=== PATIENT | female | born 1960 | race Caucasian/White ===

== ENCOUNTER 2021-10-19 13:59 | Emergency (ER) | payer SELFPAY ==
[2021-10-19 14:09] VITALS: BP 134/91; PULSE 115; RESP 16; TEMP 36.7; O2SAT 100; BMI 39.3
--- NOTE | 2021-10-19 14:24 | W.ED.DENTAL ---
HPI - Dental/Oral General: Chief complaint: Dental/Oral Stated complaint: TOOTHACHE Time Seen by Provider: 10/19/21 14:15 History of Present Illness: HPI Narrative: Patient has an appointment on Saturday in [place] to have tooth most likely pulled. Patient was told she needed antibiotics prior to having tooth pulled. Patient here for antibiotics. MD Complaint: tooth pain Onset (ago): week(s) Duration: intermittent Severity: mild Context: history of dental caries Associated symptoms: Reports no associated symptoms; Denies fever(s) Review of Systems Const: Denies: fever(s) or chills ENMT: Reports: dental pain Psych: Denies: anxiety Physical Exam Const: COMMON NORMALS: no acute distress GENERAL APPEARANCE: cooperative HENMT: TEETH & GINGIVA IMAGES: 1. Most tooth eight awake cavity 2. Has small cavity in the anterior aspect no swelling to the gum. THROAT: posterior oropharynx normal Resp: COMMON NORMALS: normal respiratory effort Psych: COMMON NORMALS: mental status grossly normal Course Vital Signs: Vital signs: Vital Signs Temperature 98.1 F 10/19/21 14:09 Pulse Rate 115 H 10/19/21 14:09 Respiratory Rate 16 10/19/21 14:09 Blood Pressure 134/91 10/19/21 14:09 Pulse Oximetry 100 10/19/21 14:09 Discharge Plan Discharge Patient Disposition: Home Clinical Impression: Dental caries Condition: Stable Prescriptions: New clindamycin HCl 300 mg capsule 300 mg PO Q8H 7 Days Qty: 21 RF: 0 Discharge Orders: Discharge ED (Routine); Ordered 10/19/21 Ordered By: Manjit Leung Discharge Diet: Usual diet Discharge Activity: Resume usual activity Patient Instructions: Dental Caries (Cavities) Activity Restrictions/Additional Instructions: Follow-up with dentist as scheduled. Take your medication as prescribed. Coding Level of Care Code ED Industrial Chemistry Teacher for Tejal Tovar
== END 2021-10-19 15:08 | disposition home or self-care (01) ==
PROVIDERS: Emergency Provider Nurse Practitioner Family
DX: K02.9 Dental caries, unspecified (principal)
CPT/HCPCS: 99282

== ENCOUNTER 2023-07-26 16:32 | Emergency (ER) | payer MEDICAID, SELFPAY ==
--- NOTE | 2023-07-26 16:38 | ECG_ITS ---
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 Measurements Intervals [place] Rate: 107 P: 0 CO: 0 QRS: 70 QRSD: 98 T: 8 QT: 327 QTc: 437 Interpretive Statements ATRIAL FIBRILLATION WITH RAPID VENTRICULAR RESPONSE NONSPECIFIC T-WAVE ABNORMALITY Compared to ECG 07/25/2017 16:42:21 No significant changes Electronically Signed On 07-26-2023 23:08:09 CDT by Glenroy Aguilar M.D. [email or web address]
[2023-07-26 16:40] VITALS: BP 129/90; PULSE 101; RESP 18; TEMP 36.7; O2SAT 97; BMI 40.3
--- NOTE | 2023-07-26 18:41 | XRR_ITS ---
PROCEDURE INFORMATION: Exam: XR Chest Exam date and time: 07/26/2023 7:02 PM Age: 63 years old Clinical indication: Pain; Other: Unknown; Additional info: Palpitations TECHNIQUE: Imaging protocol: Radiologic exam of the chest. Views: 1 view. COMPARISON: CR XR chest 1V [id number] 07/25/2017 10:39 AM FINDINGS: Lungs: Unremarkable. No consolidation. Pleural spaces: Unremarkable. No pleural effusion. No pneumothorax. Heart/Mediastinum: Unremarkable. No cardiomegaly. Bones/joints: Unremarkable. XR/XR chest 1V portable [id number] IMPRESSION: No acute findings.
[2023-07-26 18:42] VITALS: BP 149/96; PULSE 104; RESP 14; O2SAT 97
[2023-07-26] MEDS: sodium chloride 0.9% 500 ML IV (18:48)
[2023-07-26 19:03] LABS: Basophils # 0.1 10^3/uL (0.0-0.1); Basophils % 1.1 %; Eosinophils # 0.3 10^3/uL (0.0-0.8); Eosinophils % 4.3 %; Hematocrit 43.6 % (36-47); Lymphocytes # 2.5 10^3/uL (0.8-4.8); Lymphocytes % 39.5 %; Mean Corpuscular HGB Conc 32.1 g/dL (30-55); Mean Corpuscular Hemoglobin 29.2 pg (27-33); Mean Corpuscular Volume 90.8 fl (85-98); Mean Platelet Volume 10.6 fL (7.4-10.4); Monocytes # 0.6 10^3/uL (0.2-0.9); Neutrophils # 2.87 10^3/uL (1.8-7.7); Neutrophils % 45.9 %; Nucleated Red Blood Cells % 0 %; Platelet Count 241 10^3/cmm (157-399); Red Cell Distribution Width 13.2 % (12.1-15.1); White Blood Count 6.25 10^3/uL (3.29-11.43)
[2023-07-26 19:04] LABS: INR 0.99 (0.8-1.2)
[2023-07-26 19:05] LABS: Partial Thromboplastin Time 26.6 SECONDS (23.9-36.7)
[2023-07-26 19:14] LABS: Troponin(5th) Baseline 10 ng/L (0-10)
[2023-07-26 19:21] LABS: Alanine Aminotransferase 14 U/L (0-33); Albumin Level 4.1 g/dL (3.5-5.2); Alkaline Phosphatase 88 U/L (35-105); Anion Gap 14.2 (5-19); Aspartate Amino Transferase 18 U/L (0-32); Blood Urea Nitrogen 18 mg/dL (8-23); Calcium 9.4 mg/dL (8.5-10.5); Carbon Dioxide 25 mmol/L (22-29); Chloride 105 mmol/L (98-107); Globulin 2.7 g/dL (1.3-4.6); Glomerular Filtration Rate 101.6 mL/min (90-130); Glucose 101 mg/dL (65-115); Magnesium 2.3 mg/dL (1.7-2.3); NT Pro B Type Natriuretic Pept 1476 pg/mL (0-125); Osmolality Calculated 292 mOsm/kg (285-295); Phosphorus 3.7 mg/dL (2.5-4.5); Potassium 4.2 mmol/L (3.5-5.1); Sodium 140 mmol/L (136-145); Thyroid Stimulating Hormone 1.31 uIU/mL (0.27-4.20); Total Bilirubin 0.4 mg/dL (0.15-1.2); Total Protein 6.8 g/dL (6.6-8.7)
[2023-07-26 19:22] VITALS: BP 145/98; PULSE 104; O2SAT 96
--- NOTE | 2023-07-26 19:40 | ED_ITS ---
HPI - Arrhythmia/Palpitations General: Chief Complaint: Arrhythmia/Palpitations Stated Complaint: a-fib at walk in clinic Time Seen by Provider: 07/26/23 17:53 History of Present Illness: 63-year-old female with a known history of chronic atrial fibrillation presented into the outpatient clinic concerning for dentalgia and dental infection she reports she was diagnosed in 2017 she does not admit that she has been noncompliant with her medications since that time she reports she originally was admitted to our hospital had a comprehensive cardiac work-up in which due to lack of insurance she neglected to do any further follow-up. The patient reports has not been on any heart medications over the last 5 years she does not endorse having any chest pain or pressure with her intermittent palpitations the patient was sent in from an outside clinic for further evaluation of her atrial fibrillation. Associated symptoms: Deny anxiety, nausea or vomiting Review of Systems General: Reports: 10 or more systems reviewed and unremarkable except in HPI and below Const: Denies: fever(s), chills, fatigue or malaise Eyes: Denies: change in vision or blurry vision ENMT: Reports: dental pain; Denies: mouth pain Card: Reports: palpitations; Denies: chest pain Resp: Denies: dyspnea or productive cough GI: Denies: abdominal pain, nausea or vomiting : Denies: flank pain Musc: Denies: extremity pain or extremity swelling Skin/Breast: Denies: rash or pruritus Neuro: Denies: headache(s) Psych: Denies: anxiety or depression Senthil/Lymph: Denies: easy bleeding All/Imm: Denies: urticaria, throat swelling or facial swelling Physical Exam 2 Const: COMMON NORMALS: no acute distress, patient oriented x3 and healthy appearing HENMT: COMMON NORMALS: normocephalic and atraumatic HEAD & SCALP: normocephalic and atraumatic Eye: COMMON NORMALS: Equal, round and reactive pupils present and EOMs intact bilaterally PUPIL: Yes Equal, round and reactive pupils present Neck/C-Spine: COMMON NORMALS: full ROM, supple and no JVD Lymph: LYMPHATIC: no lymphadenopathy noted Chest: COMMONS NORMALS: normal inspection of the chest and normal palpation of entire chest wall Resp: COMMON NORMALS: normal respiratory effort, No retractions and clear to auscultation bilaterally EFFORT & INSPECTION: Yes able to speak in complete sentences and Yes symmetric chest movement AUSCULTATION: clear to auscultation bilaterally Cardio: COMMON NORMALS: no JVD and regular rate; negative for regular rhythm (Patient is known to be in atrial fibrillation with heart rate of 107) RATE: regular rate RHYTHM: abnormal rhythm (Patient is known to be in atrial fibrillation with heart rate of 107) GI: COMMON NORMALS: Normal to inspection, nondistended, normoactive bowel sounds present, Soft to palpation and non-tender INSPECTION: Yes normal to inspection PALPATION: Yes Soft to palpation : COMMON NORMALS: Yes no CVA tenderness BLADDER/KIDNEY EXAM: Yes no CVA tenderness Back/Pelvis: COMMON NORMALS: no CVA tenderness Extremity: COMMON NORMALS: normal to inspection and full ROM Neuro: COMMON NORMALS: patient oriented x3, CN's II-XII intact bilaterally, moves all extremities and no focal motor deficits Psych: COMMON NORMALS: mental status grossly normal, Normal thought process present, cooperative and normal affect THOUGHT PROCESS: Normal thought process present Skin: COMMON NORMALS: no rashes or lesions noted GENERAL SKIN EXAM: no rashes or lesions noted Course Vital Signs: Vital signs: Vital Signs Temperature 98.1 F 07/26/23 16:40 Pulse Rate 90 07/26/23 20:31 Respiratory Rate 16 07/26/23 20:31 Blood Pressure 132/104 07/26/23 20:31 Pulse Oximetry 96 07/26/23 20:31 Oxygen Delivery Me thod Room Air 07/26/23 16:40 MDM - Arrhythmia/Palpitations Medical Decision Making Due to lack of additional cardiac follow basic cardiac work-up will be obtained the patient patient will be started on some metoprolol while in the ER anticipate discharge home on Eliquis as well as metoprolol advised patient will need to promptly follow-up outpatient with her primary care doctor for further eval of her heart we will continue to follow. Patient's BNP was slightly elevated no pleural effusions or concerns for fluid overload patient was provided a dose of metoprolol which her ventricular rate got down to approximately average ventricular rate of 85, A limited prescription of Eliquis as well as Lopressor will be initiated which patient is directed to further follow-up with primary care doctor for further evaluation and management. Lab Data 07/26/23 18:45 07/26/23 18:45 Radiology Impressions Chest X-Ray 07/26/23 18:41 IMPRESSION: No acute findings. Laboratory Results WBC 6.25 10^3/uL (3.29-11.43) 07/26/23 18:45 RBC 4.80 10^6/uL (3.85-5.65) 07/26/23 18:45 Hgb 14.00 g/dL (11.27-16.99) 07/26/23 18:45 Hct 43.6 % (36-47) 07/26/23 18:45 MCV 90.8 fl (85-98) 07/26/23 18:45 MCH 29.2 pg (27-33) 07/26/23 18:45 MCHC 32.1 g/dL (30-55) 07/26/23 18:45 RDW 13.2 % (12.1-15.1) 07/26/23 18:45 Plt Count 241 10^3/cmm (157-399) 07/26/23 18:45 MPV 10.6 fL (7.4-10.4) H 07/26/23 18:45 Neut % (Auto) 45.9 % 07/26/23 18:45 Lymph % (Auto) 39.5 % 07/26/23 18:45 Brooke % (Auto) 9.0 % 07/26/23 18:45 Eos % (Auto) 4.3 % 07/26/23 18:45 Baso % (Auto) 1.1 % 07/26/23 18:45 Neut # (Auto) 2.87 10^3/uL (1.8-7.7) 07/26/23 18:45 Lymph # (Auto) 2.5 10^3/uL (0.8-4.8) 07/26/23 18:45 Brooke # (Auto) 0.6 10^3/uL (0.2-0.9) 07/26/23 18:45 Eos # (Auto) 0.3 10^3/uL (0.0-0.8) 07/26/23 18:45 Baso # (Auto) 0.1 10^3/uL (0.0-0.1) 07/26/23 18:45 Nucleated RBC % (auto) 0 % 07/26/23 18:45 Nucleated RBCs # 0.0 /100WBC 07/26/23 18:45 PT 13.40 SECONDS (12.1-14.9) 07/26/23 18:45 INR 0.99 (0.8-1.2) 07/26/23 18:45 APTT 26.6 SECONDS (23.9-36.7) 07/26/23 18:45 Sodium 140 mmol/L (136-145) 07/26/23 18:45 Potassium 4.2 mmol/L (3.5-5.1) 07/26/23 18:45 Chloride 105 mmol/L (98-107) 07/26/23 18:45 Carbon Dioxide 25 mmol/L (22-29) 07/26/23 18:45 Anion Gap 14.2 (5-19) 07/26/23 18:45 BUN 18 mg/dL (8-23) 07/26/23 18:45 Creatinine 0.6 mg/dL (0.5-0.9) 07/26/23 18:45 GFR Calculation 101.6 mL/min (90-130) 07/26/23 18:45 Glucose 101 mg/dL (65-115) 07/26/23 18:45 Calculated Osmolality 292 mOsm/kg (285-295) 07/26/23 18:45 Calcium 9.4 mg/dL (8.5-10.5) 07/26/23 18:45 Phosphorus 3.7 mg/dL (2.5-4.5) 07/26/23 18:45 Magnesium 2.3 mg/dL (1.7-2.3) 07/26/23 18:45 Total Bilirubin 0.4 mg/dL (0.15-1.2) 07/26/23 18:45 AST 18 U/L (0-32) 07/26/23 18:45 ALT 14 U/L (0-33) 07/26/23 18:45 Alkaline Phosphatase 88 U/L (35-105) 07/26/23 18:45 Troponin T Baseline 10 ng/L (0-10) 07/26/23 18:45 Troponin T 120 Minute 9.97 ng/L (0-10) 07/26/23 20:35 Delta Troponin T -0.03 ABS# (0-10) L 07/26/23 20:35 C-Reactive Protein 3.0 mg/L (0.0-4.9) 07/26/23 18:45 NT-Pro-B Natriuret Pep 1476 pg/mL (0-125) H 07/26/23 18:45 Total Protein 6.8 g/dL (6.6-8.7) 07/26/23 18:45 Albumin 4.1 g/dL (3.5-5.2) 07/26/23 18:45 Globulin 2.7 g/dL (1.3-4.6) 07/26/23 18:45 TSH 1.31 uIU/mL (0.27-4.20) 07/26/23 18:45 Urine Color Colorless (Yellow) 07/26/23 20:13 Urine Appearance Clear (CLEAR) 07/26/23 20:13 Urine pH 7 (5-7) 07/26/23 20:13 Ur Specific [place] 1.015 (1.005-1.030) 07/26/23 20:13 Urine Protein Neg (Negative) 07/26/23 20:13 Urine Glucose (UA) Norm (Normal) 07/26/23 20:13 Urine Ketones 1+ (Negative) H 07/26/23 20:13 Urine Blood Neg (Negative) 07/26/23 20:13 Urine Nitrate Negative (Negative) 07/26/23 20:13 Urine Bilirubin Neg (Negative) 07/26/23 20:13 Urine Urobilinogen Neg mg/dL (Negative) 07/26/23 20:13 Ur Leukocyte Esterase 1+ (Negative) H 07/26/23 20:13 Urine RBC Rare /hpf (0-2) 07/26/23 20:13 Urine WBC 5-10 /hpf (0-5) H 07/26/23 20:13 Ur Squamous Epith Cells 0-4 /hpf (0-5) H 07/26/23 20:13 Amorphous Sediment Not Reportable 07/26/23 20:13 Urine Bacteria None /hpf (NONE) 07/26/23 20:13 Urine Opiates Screen Negative ng/mL (Negative) 07/26/23 20:13 Ur Barbiturates Screen Negative ng/mL (Negative) 07/26/23 20:13 Ur Phencyclidine Scrn Negative ng/mL (Negative) 07/26/23 20:13 Ur Amphetamines Screen Negative ng/mL (Negative) 07/26/23 20:13 U Benzodiazepines Scrn Negative ng/mL (Negative) 07/26/23 20:13 Urine Cocaine Screen Negative ng/mL (Negative) 07/26/23 20:13 U Marijuana (THC) Screen Negative ng/mL (Negative) 07/26/23 20:13 All radiology interpretation(s) finalized by discharge Discharge Plan Discharge Patient Disposition: Home Clinical Impression: Atrial fibrillation Condition: Stable Prescriptions: New Eliquis 5 mg tablet 5 mg PO Q12H Qty: 30 0RF metoprolol succinate 25 mg tablet extended release 24 hr 25 mg PO DAILY Qty: 14 0RF No Action amoxicillin-pot clavulanate 875-125 mg tablet 1 tab PO BID 10 Days Qty: 20 0RF Discharge Orders: Discharge ED (Routine); Ordered 07/26/23 Ordered By: Nikita Guthrie Discharge Diet: Cardiac Discharge Activity: Increase activity as tolerated Patient Instructions: A-fib (Atrial Fibrillation) (ED) Activity Restrictions/Additional Instructions: Please further follow-up your primary care doctor in 2 to 3 days for further evaluation management, please take medications as prescribed and please return in the interim if any of your symptoms persist or worse. Coding Level of Care Code ED Animal Assistant for Tejal Tovar
[2023-07-26] MEDS: metoprolol tartrate 1 mg/1 mL SDV 5 mL 2.5 MG IVP (20:17)
[2023-07-26 20:31] VITALS: BP 132/104; PULSE 90; RESP 16; O2SAT 96
[2023-07-26 20:33] LABS: Add Urine Microscopic? YES; Bilirubin Urine Neg (Negative); Blood Urine Neg (Negative); Glucose Urine UA Norm (Normal); Ketones Urine 1+ (Negative); Leukocyte Esterase Urine 1+ (Negative); Nitrate Urine Negative (Negative); Protein Urine Neg (Negative); Specific Gravity, Urine 1.015 (1.005-1.030); Urine Appearance Clear (CLEAR); Urine Color Colorless (Yellow); Urobilinogen Urine Neg (Negative); pH Urine 7 (5-7)
[2023-07-26 20:34] LABS: Add Urine Culture? No; RBC Urine RARE /hpf (0-2); Squamous Epithelial Cell Urine 0-4 /hpf (0-5)
[2023-07-26 20:36] LABS: Amphetamines Screen Urine Negative (Negative); Barbiturates Screen Urine Negative (Negative); Benzodiazepines Screen Urine Negative (Negative); Cocaine Screen Urine Negative (Negative); Opiate Screen Urine Negative (Negative); PCP Screen Urine Negative (Negative); THC Screen Urine Negative (Negative)
[2023-07-26 21:01] LABS: Troponin 5 2HR 9.97 ng/L (0-10)
[2023-07-26 21:02] LABS: Troponin 5 2HR Delta -0.03 ABS# (0-10)
[2023-07-26] MEDS: apixaban 5 mg Tablet PO (21:30)
== END 2023-07-26 21:39 | disposition home or self-care (01) ==
PROVIDERS: Emergency Provider Emergency Medicine
DX: I48.91 Unspecified atrial fibrillation (principal)
CPT/HCPCS: 36415; 71045; 80053; 80306; 81001; 83735; 83880; 84100; 84443; 84484; 85025; 85610; 85730; 86140; 93005; 96361; 96374; 99285; J3490; J7040

== ENCOUNTER 2023-08-22 10:40 | Outpatient (CLI) | payer MEDICAID, SELFPAY ==
--- NOTE | 2023-08-22 11:15 | USCV_ITS ---
Sharon Blanco Age: 63 Gender: F : 1960 Exam Date: 08/22/2023 11:08 Ordering Phys: Ulisses Patrick MD Technologist: ALONDRA Exam Location: [facility] [place] Indication: Heart failure BP: 128 / 86 HR: 86 Rhythm: Atrial fibrillation Technical Quality: Adequate MEASUREMENTS (Male / Female) Normal Values 2D ECHO LV Diastolic Diameter PLAX 4.2 cm 4.2 - 5.9 / 3.9 - 5.3 cm LV Systolic Diameter PLAX 2.6 cm IVS Diastolic Thickness 1.1 cm 0.6 - 1.0 / 0.6 - 0.9 cm IVS Systolic Thickness 1.5 cm LVPW Diastolic Thickness 0.9 cm 0.6 - 1.0 / 0.6 - 0.9 cm LVPW Systolic Thickness 1.9 cm LVOT Diameter 2.1 cm LV Ejection Fraction 2D Teich 69.0 % LV Ejection Fraction MOD 2C 60.3 % LV Ejection Fraction 2C AL 64.0 % LA Diameter 4.2 cm LA Width 4.5 cm LA Height 5.9 cm RA Width 3.7 cm RA Height 5.3 cm Aorta at Sinotubular Diameter 3.7 cm IVC Diameter 1.5 cm M-MODE Aortic Annulus Diameter 3.7 cm LA Ao Ratio MM 1.2 MV E Point Septal Separation 0.4 cm DOPPLER AV Peak Velocity 91.0 cm/s LVOT Peak Velocity 68.0 cm/s AV Area Cont Eq vti 2.6 cm squared AV Area Cont Eq pk 2.7 cm squared MV Peak Velocity 106.0 cm/s MV Area PHT 5.2 cm squared Mitral E to A Ratio 3.8 MV E' Velocity 61.5 cm/s Mitral E to MV E' Ratio 8.7 Mitral E to LV E' Lateral Ratio 9.5 Mitral E to LV E' Septal Ratio 8.0 TR Peak Velocity 220.3 cm/s TR Peak Gradient 19.4 mmHg Right Atrial Pressure 5.0 mmHg Pulmonary Artery Systolic Pressu 24.4 mmHg PV Peak Velocity 85.0 cm/s RV Acceleration Time 0.1 s RV Ejection Time 0.3 s RV AcT/ET 0.4 FINDINGS Left Ventricle Normal left ventricular size and systolic function, EF 63 %. No regional wall motion abnormalities. Right Ventricle Normal right ventricular size and systolic function. Right Atrium Mildly increased right atrial size. Left Atrium Moderately increased left atrial size. Mitral Valve No gross abnormalities noted Aortic Valve No gross abnormalities noted Tricuspid Valve Trace to mild tricuspid valve regurgitation. Pulmonic Valve No gross abnormalities noted Pericardium No significant pericardial effusion Aorta Normal aortic annulus size. IVC Normal inferior vena cava. CONCLUSIONS Normal left ventricular size and systolic function, EF 63 %. No regional wall motion abnormalities. Moderately increased left atrial size. Mildly increased right atrial size. Trace to mild tricuspid valve regurgitation. Estimated pulmonary artery peak systolic pressure 24 mmHg There is no significant pericardial effusion. There are no intracardiac masses. Compared to the study from 07/25/2017, there may not be a significant change. Dr Lonnie Gutierrez MD FACC (Electronically Signed) Final Date: 23 August 2023 06:56 S
== END 2023-08-22 10:41 | disposition home or self-care (01) ==
LOC: RAD 10:40
PROVIDERS: PCP Family Medicine; Visit Provider Family Medicine
DX: I50.9 Heart failure, unspecified (principal); I07.1 Rheumatic tricuspid insufficiency
CPT/HCPCS: 93306

== ENCOUNTER 2024-07-08 11:03 | Emergency (ER) | payer MEDICAID, SELFPAY ==
--- NOTE | 2024-07-08 11:08 | CT_ITS ---
WS: [id number] CT LUMBAR SPINE, noncontrast. HISTORY: low back pain TECHNIQUE: Contiguous 2.0 mm axial imaging are performed. Sagittal and coronal reformats are submitte d and reviewed. [facility] at least one of these dose optimization techni ques: automated exposure control; mA and/or kV adjustment per patient size (includes targeted exams w here dose is matched to clinical indication); or iterative reconstruction. IV contrast: None DLP: 1167.36 mGy.cm COMPARISON: None available. Mild increase in the lumbar lordosis. L4 anterolisthesis by 4.3 mm. No fractures. Osteopenia. L1-2: Normal. L2-3: Mild diffuse annular disc bulging and facet arthritis. Very slight encroachment upon the ventra l thecal sac. L3-4: Diffuse annular disc bulging encroaching upon the ventral thecal sac and subarticular recesses. Bilateral facet joint arthritis. Mild central and bilateral foraminal stenosis. L4-5: Diffuse annular disc bulging with a focal LEFT foraminal disc protrusion. There is a smaller RI GHT foraminal disc protrusion. There is mild disc contact on the traversing L5 nerve roots. Mild LEFT foraminal stenosis. Severe facet joint arthropathy with fusion across the facet joints. L5-S1: Mild disc bulging with a small osteophyte and disc protrusion contacting the LEFT S1 nerve kelsey t. Mild bilateral foraminal stenosis. 7 mm pulmonary nodule at the LEFT lung base was present in 2018 with 2 mm increase in size. LEFT adre nal adenoma 1.7 cm. Mild atherosclerosis aorta. Bilateral SI joint sclerosis and sacroiliitis. CT/CT lumbar spine wo con* [id number] IMPRESSION: 1. No acute lumbar spine fracture. 2. L4 anterolisthesis by 4.3 mm. 3. L4-5: Disc bulging with focal bilateral foraminal disc protrusions, greates t on the LEFT. There is disc contacting the traversing L5 nerve root. 4. Severe facet joint arthropathy with osseous fusion at the facet joints at L 4-5. 5. Mild disc bulging at L5-S1 with small disc osteophyte contacting the LEFT S 1 nerve root. Mild foraminal narrowing. L3-4: Mild central and bilateral forami nal stenosis.
[2024-07-08 11:14] VITALS: BP 144/75; PULSE 101; RESP 16; TEMP 36.7; O2SAT 98; BMI 36.3
--- NOTE | 2024-07-08 11:37 | PC.NURSE ---
Addendum entered by Cee Gomez LPN 07/08/24 11:38: this nurse notified Dr. Rosales who changed route to IM. Original Note: this nurse went to start IV on pt for medication administration. pt refused stating she preferred shots and did not want an IV.
--- NOTE | 2024-07-08 11:43 | ED_ITS ---
HPI - Back Pain/Injury General: Chief Complaint: Back Pain/Injury Stated Complaint: lower back pain Time Seen by Provider: 07/08/24 11:03 History of Present Illness: 64-year-old female with a history of A-f ib on Eliquis who presents emergency room by ambulance with low back pain and leg weakness. This is difficult to tease out if she is having weakness or she is unable to move her right leg because of pain. No sensory deficits. Says this all started after she carried a heavy box. She has had issues with this before that were labeled as sciatica. No saddle numbness, no urinary retention or incontinence, no focal motor deficit, no sensory deficit. no recent fever. no cough. no shortness of breath. no chest pain. no abdominal pain. no nausea or vomiting. no dysuria. no altered mental status. no edema. Related Data Home Medications Medication Instructions Recorded Confirmed metoprolol succinate 25 mg 25 mg PO DAILY 07/08/24 07/08/24 tablet,extended release 24 hr Previous Rx's Medication Instructions Recorded apixaban 5 mg tablet (Eliquis) 5 mg PO BID #180 tabs 10/31/23 cyclobenzaprine 10 mg tablet 10 mg PO Q8H PRN muscle spasm #20 07/08/24 tabs dexamethasone 6 mg tablet 6 mg PO DAILY 5 days #5 tabs 07/08/24 diclofenac sodium 50 mg 50 mg PO BID PRN pain #14 tabs 07/08/24 tablet,delayed release Allergies Allergy/AdvReac Type Severity Reaction Status Date / Time No Known Allergies Allergy Unverified 10/31/23 10:50 Review of Systems Narrative: Constitutional symptoms: Negative except as documented in HPI. Skin symptoms: Negative except as documented in HPI. Eye symptoms: Negative except as documented in HPI. ENMT symptoms: Negative except as documented in HPI. Respiratory symptoms: Negative except as documented in HPI. Cardiovascular symptoms: Negative except as documented in HPI. Gastrointestinal symptoms: Negative except as documented in HPI. Genitourinary symptoms: Negative except as documented in HPI. Musculoskeletal symptoms: Negative except as documented in HPI. Neurologic symptoms: Negative except as documented in HPI. Psychiatric symptoms: Negative except as documented in HPI. Endocrine symptoms: Negative except as documented in HPI. FOR[facility]LY [facility], [facility] ED PFSH: Medical History Heart failure Atrial fibrillation Surgical History H/O: hysterectomy H/O right wrist surgery Social History Smoking and tobacco/nicotine status: never used tobacco/nicotine Second hand smoke exposure: No Alcohol intake: never Substance/Drug Use: never Adopted: No Caregiver/support person: No Lives independently: Yes Marital status: Single Number of children: 1 service: No Current occupational status: unemployed Current occupational exposures/hazards: No Pets and animals: No Do you think of yourself as: Straight/Heterosexual Current gender identity: Female Female Reproductive History: Spontaneous abortions: No Physical Exam Narrative: EXAM NARRATIVE: General: Alert, no acute distress. Skin: Warm, dry. Head: Normocephalic, atraumatic. Neck: Supple, trachea midline. Eye: Extraocular movements are intact. Ears, nose, mouth and throat: mucosa moist. Cardiovascular: Regular, Normal peripheral perfusion. Respiratory: Lungs are clear to auscultation, respirations are non-labored, breath sounds are equal, Symmetrical chest wall expansion. Gastrointestinal: Soft, Nontender, Non distended Musculoskeletal: Normal ROM, no deformity. Neurological: Alert and oriented, No focal neurological deficit observed. Psychiatric: Cooperative, appropriate mood & affect. Course Vital Signs: Vital signs: Vital Signs Temperature 98.1 F 07/08/24 11:14 Pulse Rate 80 07/08/24 12:23 Respiratory Rate 16 07/08/24 12:23 Blood Pressure 92/64 07/08/24 12:23 Pulse Oximetry 95 07/08/24 12:23 Oxygen Delivery Me thod Room Air 07/08/24 12:23 MDM - Back Pain/Injury Medical Decision Making CT of the lumbar spine: Multiple bulging disks on the left. Patient's symptoms are worse on the right. She says her chronic symptoms are normally worse on the left. See full read below. This was reviewed and interpreted by myself the emergency room physician. I also reviewed the radiology report. Assessment and plan: Lumbar radiculopathy Lumbar strain Sciatica ? IM Decadron, IM Norflex and p.o. [place] in the emergency room. She felt a little dizzy afterwards and her blood pressure was a little soft afterwards. - Discharged home - Discussed plan with patient. Answered any questions. - Evaluation and treatment of this problem were appropriate in the emergency setting. Labs Radiology Impressions Lumbar Spine CT 07/08/24 11:08 IMPRESSION: 1. No acute lumbar spine fracture. 2. L4 anterolisthesis by 4.3 mm. 3. L4-5: Disc bulging with focal bilateral foraminal disc protrusions, greatest on the LEFT. There is disc contacting the traversing L5 nerve root. 4. Severe facet joint arthropathy with osseous fusion at the facet joints at L4-5. 5. Mild disc bulging at L5-S1 with small disc osteophyte contacting the LEFT S1 nerve root. Mild foraminal narrowing. L3-4: Mild central and bilateral foraminal stenosis. All radiology interpretation(s) finalized by discharge Discharge Plan Discharge Patient Disposition: Home Clinical Impression: Sciatica, Strain of lumbar region, Lumbar radiculopathy Condition: Stable Prescriptions: New cyclobenzaprine 10 mg tablet 10 mg PO Q8H PRN (Reason: muscle spasm) Qty: 20 0RF dexamethasone 6 mg tablet 6 mg PO DAILY 5 Days Qty: 5 0RF diclofenac sodium 50 mg tablet,delayed release (DR/EC) 50 mg PO BID PRN (Reason: pain) Qty: 14 0RF No Action Eliquis 5 mg tablet 5 mg PO BID Qty: 180 1RF metoprolol succinate 25 mg tablet extended release 24 hr 25 mg PO DAILY Discharge Orders: Discharge ED (Routine); Ordered 07/08/24 Ordered By: Chrissie Rosales Referrals: Yohannes Charles DO [Physician] - 4-7 days (Please call for an appointment if your pain persists.) Ulisses Patrick MD [Primary Care Provider] - Discharge Diet: Usual diet Discharge Activity: Increase activity as tolerated Patient Instructions: Sciatica (ED), Lumbar Radiculopathy (ED) Activity Restrictions/Additional Instructions: Thank you for choosing [facility] for your healthcare needs today. Please realize this is an emergency room and that we are providing you with a medical screening exam and this may not be complete and all inclusive of all the testing and or work up that you may need to determine your ailment or severity of your illness. You have been screened and evaluated and felt safe for discharge. Health conditions do change or evolve sometimes and as such it is important that you follow up with your Primary Doctor to be re checked, 3-5 days is a general good time frame for follow up. You are always welcome to return to the ED for re assessment if your symptoms are worsening or you have new concerns Coding Level of Care Code ED Web Operations Administrator for Tejal Tovar
[2024-07-08] MEDS: orphenadrine 30 mg/mL Inj 2 mL 60 MG IM (11:58)
[2024-07-08] MEDS: dexamethasone 10 mg/mL INJ IM (11:58)
[2024-07-08] MEDS: HYDROcodone-acetaminophen 10-325 mg Tablet 1 TAB PO (11:58)
[2024-07-08 12:23] VITALS: BP 92/64; PULSE 80; RESP 16; O2SAT 95
[2024-07-08 13:38] VITALS: BP 112/72; PULSE 100; RESP 16; O2SAT 94
== END 2024-07-08 13:39 | disposition home or self-care (01) ==
PROVIDERS: Emergency Provider Emergency Medicine; PCP Family Medicine
DX: M54.31 Sciatica, right side (principal); S39.012A Strain of muscle, fascia and tendon of lower back, initial encounter; M54.16 Radiculopathy, lumbar region; Z79.01 Long term (current) use of anticoagulants; I50.9 Heart failure, unspecified; X50.0XXA Overexertion from strenuous movement or load, initial encounter
CPT/HCPCS: 72131; 96372; 99284; J1100; J2360

== ENCOUNTER → 2025-07-28 15:17 | Outpatient (BNVA) | payer MEDICAID, SELFPAY | PROVIDERS: PCP Family Medicine; Visit Provider Family Medicine | DX: Z13.6 Encounter for screening for cardiovascular disorders (principal) | CPT/HCPCS: 80053; 80061; 82728; 83036; 83550; 84439; 84443; 85025 ==